=== PATIENT | female | born 1965 | race African-American/Black ===

== ENCOUNTER 2017-05-06 16:57 | Emergency (ER) | payer OTHER ==
[~2017-05-06] VITALS: Ht 170.2 cm; Wt 122.7 kg
[~2017-05-06 16:57] MED LIST: ENAL5TAB PO; FOLI1 PO; METH2.5 PO; PRED5TAB PO
[2017-05-06 16:58] VITALS: BP 177/119; PULSE 92; RESP 16; TEMP 99; O2SAT 96
--- NOTE | 2017-05-06 18:33 | PD ---
HPI Chief Complaint: Skin Problem Time Seen by Provider: 17:54 Travel History International Travel<30 days: No Contact w/Intl Traveler<30days: No Traveled to known affect area: No History of Present Illness HPI This is a 51-year-old female here for evaluation of an abscess to her right chest wall times one week. She reports the area is draining as of yesterday. Denies fever or chills. She has pain at the site of the abscess. Symptom severity is moderate. No alleviating factors. PFSH Past Medical History Arthritis: Yes (rheumatoid ) Autoimmune Disease: Yes (rheumatoid) Heart Rhythm Problems: No Cancer: No Cardiovascular Problems: No High Cholesterol: No Congestive Heart Failure: No Diabetes: No Endocrine: No Genitourinary: No Hepatitis: No Hypertension: Yes Immune Disorder: No Musculoskeletal: Yes (RHEUMATOID ARTHRITIS) Neurologic: No Psychiatric: No Reproductive: No Respiratory: No Thyroid Disease: No Past Surgical History AICD: No Coronary Artery Bypass Graft: No Gynecologic Surgery: Yes (HYSTERECTOMY) Hysterectomy: Yes Joint Replacement: No Pacemaker: No Social History Alcohol Use: No Tobacco Use: No Substance Use: No Allergies-Medications (Allergen,Severity, Reaction): Coded Allergies: No Known Allergies (Unverified , 09/09/13) Reported Meds & Prescriptions Reported Meds & Active Scripts Active Keflex (Cephalexin) 250 Mg Cap 250 Mg PO Q6H 10 Days Bactrim DS (Sulfamethoxazole-Trimethoprim) 800-160 Mg Tab 1 Tab PO BID Reported Prednisone 5 Mg Tab 5 Mg PO DAILY Rheumatrex (Methotrexate) 2.5 Mg Tab 17.5 Mg PO WEEKLY Folate 1 Mg Tab (Folic Acid) 1 Mg Tab 1 Mg PO DAILY Enalapril Maleate 5 Mg Tab 0 PO DAILY Review of Systems Except as stated in HPI: all other systems reviewed are Neg General / Constitutional: No: Fever Eyes: No: Visual changes HENT: No: Headaches Cardiovascular: No: Chest Pain or Discomfort Respiratory: No: Shortness of Breath Gastrointestinal: No: Abdominal Pain Physical Exam Narrative GENERAL: Alert well-appearing female SKIN: Warm and dry. 2 cm fluctuant abscess to the right chest wall with small amount of purulent drainage. 1 cm indurated open abscess to the left axilla with purulent drainage. Approximately 2 cm of erythema surrounding each abscess. HEAD: Normocephalic. EYES: No injection or drainage. NECK: Supple, trachea midline. CARDIOVASCULAR: Regular rate and rhythm RESPIRATORY: Breath sounds equal bilaterally. No accessory muscle use. Data Data Last Documented VS Vital Signs Date Time Temp Pulse Resp B/P (MAP) Pulse Ox O2 Delivery O2 Flow Rate FiO2 05/06/17 17:51 05/06/17 16:58 99.0 92 16 96 Orders Orders Sulfamet-Trimeth Ds 800-160 Mg (Bactrim (05/06/17 18:45) Ed Discharge Order (05/06/17 18:41) MDM Medical Decision Making Medical Screen Exam Complete: Yes Emergency Medical Condition: Yes Differential Diagnosis Abscess, cellulitis, wound infection Narrative Course 51-year-old female here with 2 abscesses. She is nontoxic appearing. Her vital signs are stable. Incision and drainage performed of the chest wall abscess. Patient tolerated procedure well Procedures Procedure Narrative INCISION AND DRAINAGE OF ABSCESS: The area was prepped and was sterilely draped. A subcutaneous wheal of 1 % Xylocaine with epi with a total number was used to anesthetize the area properly. A number 11 scalpel was used to make a 0.5 -cm incision across the area of the abscess. The abscess was drained , complex loculations were broken down, and irrigated with normal saline. Quarter inch iodoform packing was placed in the wound. Sterile dressing applied. Patient advised to have packing removed in two days. Diagnosis Primary Impression: Abscess Referrals: Primary Care Physician Additional Instructions: Packing needs to be removed from the chest wall abscess in 2 days. Cleansed the area daily with soap and water. Take the antibiotics as prescribed. [id number] Tylenol or ibuprofen as needed for pain. Scripts Cephalexin (Keflex) 250 Mg Cap 250 MG PO Q6H for Infection for 10 Days, #40 CAP 0 Refills Prov: Ai Bello 05/06/17 Sulfamethoxazole-Trimethoprim (Bactrim DS) 800-160 Mg Tab 1 TAB PO BID for Infection, #20 TAB 0 Refills Prov: Ai Bello 05/06/17 Disposition: 01 DISCHARGE HOME Condition: Stable Ai Bello May 06, 2017 18:33
[2017-05-06] MEDS ORDERED: CEPH-459 PO (18:40)
[2017-05-06] MEDS ORDERED: BACT800T5 PO (18:40)
[2017-05-06] MEDS ORDERED: SULFAMETHOXAZOLE-TRIMETHOPRIM DS 800-160 MG TAB PO ONE (18:45)
== END 2017-05-06 19:09 | disposition home or self-care (01) ==
LOC: NEPK 16:57
DX: L02.213 Cutaneous abscess of chest wall (principal); I10 Essential (primary) hypertension
CPT/HCPCS: 10061